=== PATIENT | female | born 1945 ===

== ENCOUNTER 2020-02-20 06:00 | Day surgery (SDC) | payer OTHER | END 2020-02-20 11:50 | disposition home or self-care (01) | LOC: AMB-ENDOS 06:00 → CIR.AMB 09:30 → AMB-ENDOS 11:50 | PROVIDERS: ATTEND Surgery | DX: D12.0 Benign neoplasm of cecum (principal); Z20.828 Contact with and (suspected) exposure to other viral communicable diseases ==